=== PATIENT | female | born 1990 ===

== ENCOUNTER → 2017-12-21 | Outpatient (CLI) | payer OTHER | END | disposition home or self-care (01) | LOC: PPH VACUNA 12:59 | DX: Z23 Encounter for immunization (principal) ==

== ENCOUNTER 2018-01-23 12:13 | Inpatient (IN) | payer OTHER ==
[~2018-01-23] VITALS: Ht 160 cm; Wt 172.0 kg
[2018-02-06] MEDS ORDERED: PRENATAL 19 TA1 EACH PO (09:35)
== END 2018-02-10 14:59 | DRG 765 ==
LOC: LDR 02-06 06:25 → SURG-SUITE 02-06 06:25 → O/R 02-06 20:49 → SURG-SUITE 02-06 22:26 → LDR 02-12 12:12
PROVIDERS: Obstetrics & Gynecology
PROC: 4A1HXCZ Monitoring of Products of Conception, Cardiac Rate, External Approach (ICD-10-PCS; 2018-02-06)
PROC: 4A033R1 Measurement of Arterial Saturation, Peripheral, Percutaneous Approach (ICD-10-PCS; 2018-02-06)
PROC: 10D00Z1 Extraction of Products of Conception, Low, Open Approach (ICD-10-PCS; principal; 2018-02-06 18:00)
DX: O33.8 Maternal care for disproportion of other origin (principal); O34.33 Maternal care for cervical incompetence, third trimester; Z3A.39 39 weeks gestation of pregnancy; Z37.0 Single live birth

== ENCOUNTER 2018-08-31 13:41 | Emergency (ER) | payer OTHER ==
[~2018-08-31] VITALS: Ht 162.6 cm; Wt 61.2 kg
[~2018-08-31 13:41] MED LIST: PRENATAL 19 TA1 EACH PO
== END 2018-08-31 20:40 | disposition home or self-care (01) ==
LOC: ER 13:41
DX: T75.3XXA Motion sickness, initial encounter (principal)